=== PATIENT | male | born 1985 | race Hispanic/Latino ===

== ENCOUNTER 2016-04-09 11:13 | Emergency (ER) | payer OTHER ==
[~2016-04-09] VITALS: Ht 180.3 cm; Wt 84.1 kg
[2016-04-09 11:14] VITALS: BP 132/73; PULSE 82; RESP 12; O2SAT 97
--- NOTE | 2016-04-09 11:23 | ED.REPORT ---
HPI-Extremity Problem Lower Date of Service Apr 09, 2016 ED Provider: Xin Pugh History of Present Illness: unloading wood from a truck, knee moved , felt a tear in right knee. Happened atound 7 pm last night. primary care is unknown. happened at home. took ibuprofen and did ice. worse in the morning. 10/10 pain. Did have etoh on board last night per his report Nursing Notes Stated Complaint: RT KNEE INJURY Chief Complaint: Extremity Trauma Nursing Notes Reviewed: Yes Allergies: Coded Allergies: No Known Allergies (Verified , 09/11/14) No Active Prescriptions or Reported Meds General Time Seen by MD: 11:22 Chief Complaint Knee injury right Hx Obtained From: Patient Onset Occurred: Yesterday Severity: Current: Pain level 10 out of 10 Past Medical History Past Medical History Denies: Asthma Past Surgical History 2006 left femur fracture Smoking History Former Smoker Social History Alcohol Use: 1-3 per week Drug Use: THC Occupation lives with girlfriend. work at [employer] 04/09/2016 Ambulatory Status Independent Review of Systems Basic Review of Systems Eyes: Vision NL, No discharge Cardiovascular: No chest pain, No dyspnea on exertion, No orthopnea, No parox noct dyspnea, No palpitations Psychiatric: Normal thought content Physical Exam Initial Vital Signs Vital Signs (First) Date Time Temp Pulse Resp B/P Pulse Ox O2 Delivery O2 Flow Rate FiO2 04/09/16 11:14 37.0 82 12 132/73 97 Room Air Initial VS: Reviewed, Vital signs normal General/Constitutional: Well-developed, Well-nourished Head / Eyes: Atraumatic, Normocephalic, PERRL ENT: Mucous membranes moist, Conjunctiva normal, No scleral icterus Neck: Supple, Non-tender, Full range of motion Respiratory: Breath sounds normal, Clear to auscultation, No respiratory distress Cardiovascular: Regular rate & rhythm, Heart sounds normal, Intact distal pulses Abdomen / GI: Soft, Non-tender, No guarding, No rebound, No distention Back: No CVA tenderness Lymphatic: No lymphadenopathy Upper Extremities: Vascular intact, Neuro intact, No swelling, No tenderness Skin: Warm, Dry, No cyanosis Neurologic: Alert, Oriented, Nonfocal Psychiatric: Mood/affect normal, Behavior normal, Normal thought content Right Knee: Positive: Tenderness present... (Moderate) patient indicates pain is greatest a lateral joint line on right knee. No ecchymosis noted. Cap refill 2 sec on foot, has movement but with discomfort Ankle / Foot: Atraumatic, Inspection NL, Full range of motion General/Constitutional: Awake, Alert, No acute distress, Well appearing, Well developed, Well hydrated Respiratory / Chest: Atraumatic, Breath sounds NL, Breath sounds = bilat, No respiratory distress Cardiovascular: Heart rate NL, Regular rhythm, Heart sounds NL Interpretation & Diagnostics X-Ray Interpretation Xray Interpretation: PROCEDURE: X-RAY RIGHT KNEE, THREE VIEWS ([id number]) INDICATIONS: twisted while unloading wood last night TECHNIQUE: 3 views of the knee were acquired. COMPARISON: None. FINDINGS: Bones: No fractures or dislocations. No suspicious bony lesions. Soft tissues: No joint effusion. No suspicious soft tissue calcifications. IMPRESSION: No abnormality is seen in these 3 views of the right knee. Dictated by: Thomas Mike M.D. on 04/09/2016 at 13:01 Re-Eval/Medical Decision Med Decision/Clinical Course 30 year old male presents to the ER afte injuring right knee while unlaoding wood. He reports his right foot was locked between wood and his upper leg caught a log with lateral movement of his knee. Reports hearing a "tear" Patient indicates greatest pain is along the lateral joint line. No ecchymosis noted. Flexion of the knee results in pain at the lateral joint line. Patient does work at [employer]. No evidence of compartment syndrome, fracture or dislocation Differential Diagnosis: Negative: Compartment syndrome, Fracture, Knee disloc ant Discharge & Departure Impression: Primary Impression: Internal derangement of knee joint Laterality: right Qualified Code: M23.91 - Unspecified internal derangement of right knee Disposition: Home Patient Instructions: Crutch Instructions (ED), Knee Sprain (ED) Additional Instructions: The x-ray does not show any bony damage. Use crutches as needed for ambulation. Use ibuprofen 800 mg 3 times a day for 5 days. Hydrocodone 1 up to 2 times a day as needed for severe unrelenting pain. #20. Continue with elevation and ice , 15 minutes on and 15 minutes off. Need a cloth barrier between your skin and the ice. Note for off work provided for [address] Horne for follow up. Referrals: Rafa Horne MD EDSupervising Provider for APC: Marco Ochoa MD copies to: Rafa Horne MD, Sue ARNP Apr 09, 2016 11:23
[2016-04-09] MEDS ORDERED: Ketorolac 30 mg/mL 2 mL Inj IM ONE (11:35)
--- NOTE | 2016-04-09 13:03 | DRSVH ---
PROCEDURE: X-RAY RIGHT KNEE, THREE VIEWS ([id number]) INDICATIONS: twisted while unloading wood last night TECHNIQUE: 3 views of the knee were acquired. COMPARISON: None. FINDINGS: Bones: No fractures or dislocations. No suspicious bony lesions. Soft tissues: No joint effusion. No suspicious soft tissue calcifications. IMPRESSION: No abnormality is seen in these 3 views of the right knee. Dictated by: Thomas Mike M.D. on 04/09/2016 at 13:01 Approved by: Thomas Mike M.D. on 04/09/2016 at 13:01
== END 2016-04-09 13:15 | disposition home or self-care (01) ==
LOC: SED 11:13
DX: M23.91 Unspecified internal derangement of right knee (principal); W22.8XXA Striking against or struck by other objects, initial encounter; Y92.008 Other place in unspecified non-institutional (private) residence as the place of occurrence of the external cause; Y93.89 Activity, other specified; Y99.8 Other external cause status; I10 Essential (primary) hypertension; F10.10 Alcohol abuse, uncomplicated; Z87.891 Personal history of nicotine dependence; Z87.828 Personal history of other (healed) physical injury and trauma
CPT/HCPCS: 73562; 96372; 99284; J1885

== ENCOUNTER 2016-06-25 16:17 | Emergency (ER) | payer OTHER ==
[~2016-06-25] VITALS: Ht 180.3 cm; Wt 84.1 kg
[2016-06-25 16:27] VITALS: BP 131/74; PULSE 83; RESP 16; O2SAT 97
--- NOTE | 2016-06-25 16:54 | ED.REPORT ---
HPI-Chest Pain Under 40 Date of Service June 25, 2016 ED Provider: Caitlin Tracy MD The patient is a 30 year old male with history of epilepsy not on medication, who presents to the emergency department complaining of central chest pressure that began 1 hour ago while he was at home. The pain radiates to the sides of his chest. He also experienced diaphoresis, a "hot flash," shakiness, and dizziness. The patient states his symptoms are similar to when he has previously had a seizure except he has not previously experienced chest pain. He smoked marijuana prior to his pain but he has smoked this same marijuana several times in the past with no symptoms. 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 He last used 2 hours ago. He denies shortness of breath, nausea, vomiting, fever , chills or cough. Nursing Notes Stated Complaint: TIGHT CHEST, LIGHTHEADED Chief Complaint: Chest Pain Nursing Notes Reviewed: Yes Allergies: Coded Allergies: No Known Allergies (Verified , 09/11/14) No Active Prescriptions or Reported Meds General Time Seen by MD: 16:53 Chief Complaint Chest pain Hx Obtained From: Patient, Spouse Arrived By: Walk-in Sudden in Onset?: Yes Onset Occurred: 1 - 4 hours ago Symptom Duration: Since onset Location: : Substernal Quality: Pressure Severity: Current: Moderate Severity: Maximum: Moderate Recent Healthcare: No recent doctor visit, No recent hospitalization Similar Sx Previous: No Past Medical History Past Medical History Hx of epilepsy, not on medications - last seizure about 4 years ago Past Surgical History 2007 left femur fracture Family History Noncontributory Smoking History Never Smoker Social History The patient has recently been smoking heroin as well Alcohol Use: 1-3 per week Drug Use: THC Other Social History: Good social support, Local resident Occupation lives with girlfriend. work at [employer] 04/09/2016 Ambulatory Status Independent Review of Systems Review of Systems Note: +"hot flash" Constitutional: Denies: Chills, Fever Respiratory: Denies: Non-productive cough, Shortness of breath Cardiovascular: Reports: Chest pain GI: Denies: Nausea, Vomiting Skin: Reports Diaphoresis Neurologic: Reports: Dizziness, Shaking Complete sys rev & neg: except as marked. Physical Exam Initial Vital Signs Vital Signs (First) Date Time Temp Pulse Resp B/P Pulse Ox O2 Delivery O2 Flow Rate FiO2 5/14/17 16:27 36.4 83 16 131/74 97 Room Air Initial VS: Reviewed, Vital signs normal Head / Eyes: Atraumatic, Normocephalic, PERRL ENT: Mucous membranes moist, Conjunctiva normal, No scleral icterus Neck: Supple, Non-tender, Full range of motion Lymphatic: No lymphadenopathy Extremities: Vascular intact, Neuro intact, No swelling, No tenderness Skin: Warm, Dry, No cyanosis Neurologic: Alert, Oriented, Nonfocal Psychiatric: Mood/affect normal, Behavior normal, Normal thought content General/Constitutional: Awake, Alert, Cooperative Respiratory / Chest: Atraumatic, Breath sounds NL, Breath sounds = bilat, No respiratory distress, No rales, No rhonchi, No wheezing, No chest tenderness Cardiovascular: Heart rate NL, Regular rhythm, Heart sounds NL, No gallop, No murmurs, No rubs, Peripheral circulation NL, Pulses = bilaterally, No gross BP differential Abdomen: Soft, No guarding, No rebound, BS normoactive, No distention, No hernia, No palpable mass, No pulsatile mass Tenderness/Guarding/Rebound: Positive: Tender epigastric Interpretation & Diagnostics Lab Results Interpretation Result Diagram: 06/25/16 1640 06/25/16 1640 Test 06/25/16 16:40 06/25/16 18:40 White Blood Count 7.3th/mm3 (3.8-10.1) Red Blood Count 4.67mil/mm3 (4.40-5.80) Hemoglobin 13.9g/dL (13.8-17.2) Hematocrit 42.1% (41.0-50.0) Mean Corpuscular Volume 90.1fL (81-100) Mean Corpuscular Hemoglobin 29.8pg (27.0-35.0) Mean Corpuscular Hemoglobin Concent 33.0% (32.0-37.0) Red Cell Distribution Width 12.6% (12.3-15.4) Platelet Count 296bil/L (150-400) Neutrophils (%) (Auto) 54.6% (40-74) Lymphocytes (%) (Auto) 39.2% (14-46) Monocytes (%) (Auto) 5.4% (4-12) Eosinophils (%) (Auto) 0.3% (0-5) Basophils (%) (Auto) 0.4% (0-3) Sodium Level 140mEq/L (134-144) Potassium Level 3.5mEq/L (3.5-5.2) Chloride Level 100mEq/L (97-108) Carbon Dioxide Level 23mmol/L (18-29) Blood Urea Nitrogen 17mg/dL (6-20) Creatinine 0.93mg/dL (0.76-1.27) Estimat Glomerular Filtration Rate 102mL/min (>59) Glucose Level 168mg/dL (60-99) Calcium Level 9.6mg/dL (8.5-10.1) Total Bilirubin 0.4mg/dL (0.0-1.2) Aspartate Amino Transf (AST/SGOT) 25U/L (0-50) Alanine Aminotransferase (ALT/SGPT) 17U/L (0-44) Alkaline Phosphatase 58U/L (25-150) Total Protein 7.1g/dL (6.4-8.4) Albumin 4.5g/dL (3.4-5.0) Hold Hartley Top Tube Received (Received) Troponin T < 0.010ug/L (0.0-0.011) ECG Interpretation ECG Interpretation: Sinus rhythm with a rate of 85 Normal intervals Normal axis Nonspecific ST changes in all leads Time: 16:39 Interpreted by: ED physician ECG Interpretation: Sinus rhythm with a rate of 60 Time: 18:17 Interpreted by: ED physician X-Ray Chest Interpretation Chest Xray Interpretation: IMPRESSION: 1. No acute cardiopulmonary disease. Dictated by: Hunter Go M.D. on 06/25/2016 at 17:29 Interpretation / Wet Read by: Interpret - Radiologist Re-Eval/Medical Decision Med Decision/Clinical Course According to the patient already since her symptomatically for a seizure in the past however the chest pain is new. A partial list of differential diagnoses considered were acute coronary syndrome, pulmonary embolus, reflux, esophageal spasm, pneumonia, adverse reaction to marijuana, and anxiety. The patient is very low risk for ischemia and he had 2 negative troponins. His symptoms completely resolved while here. The patient also recently started using opiates , he saw our social worker clinical and was given information on getting on Suboxone. Source of Hx: Old records Re-Evaluation/Progress : Time of Eval: 19:32 Re-Evaluation/Progress Note: Rechecked the patient. Discussed plan for discharge. All questions were addressed. Consultation : Consulted With: overhead line worker Call Returned at: 18:05 Note: ED social worker clinical evaluated the patient and gave him outpatient substance abuse resources. He would like us to refer the patient to the residency clinic. Counseled Regarding: Diagnosis, Lab results, Need for follow-up, When/why to return to ED Discharge & Departure Primary Impression: Chest pain Chest pain type: unspecified Qualified Code: R07.9 - Chest pain, unspecified Disposition: Home Discharge Condition All VS Reviewed: Yes Condition: Improved Patient Instructions: Chest Pain (ED) Additional Instructions: Thank you for entrusting us with your care today. Your workup today is reassuring. There is no evidence of a heart attack, blood clot, or pneumonia. It is important that you establish care with a regular doctor. We have given you a referral to the residency clinic and [facility]. Call on Sunday to schedule an appointment. Use the resources that were given to you by the social worker clinical. Please return to the emergency department for any new or concerning symptoms. Referrals: [facility] Attestation Portions of this note were transcribed by Mariely Hernandez. I, Dr. Tracy personally performed the history, physical exam and medical decision-making; I reviewed and confirmed the accuracy of the information in the transcribed note. Signed by: Raina Stephens, 06/25/2016 at 2000. copies to: [facility] Caitlin Tracy MD June 25, 2016 16:54 Mariely Hernandez June 25, 2016 17:03
[2016-06-25 17:09] LABS: BASOPHILS % (AUTO) 0.4 % (0-3); EOSINOPHILS % (AUTO) 0.3 % (0-5); MONOCYTES % (AUTO) 5.4 % (4-12); Mean Corpuscular Hemoglobin 29.8 pg (27.0-35.0); Mean Corpuscular Volume 90.1 fL (81-100); NEUTROPHILS % (AUTO) 54.6 % (40-74); Platelet Count 296 bil/L (150-400)
[2016-06-25] MEDS ORDERED: 0.9% Sodium Chloride 1,000 ML IV ONE (17:15)
[2016-06-25] MEDS ORDERED: LidocaineVisc 2%:Antacid 1:1 10 mL Syringe PO ONE (17:20)
[2016-06-25 17:30] VITALS: BP 127/63; PULSE 78; RESP 18; O2SAT 98
--- NOTE | 2016-06-25 17:37 | DRSVH ---
PROCEDURE: X-RAY CHEST ONE VIEW, PORTABLE ([id number]) INDICATIONS: shortness of breath TECHNIQUE: One view of the chest was acquired. COMPARISON: [facility], , CHEST 2VW, 03/09/2013, 21:32. FINDINGS: Surgical changes and devices: None. Lungs and pleura: No pleural effusions or pneumothorax. Lungs are clear. Mediastinum: Mediastinal contours appear normal. Heart size is normal. Bones and chest wall: No suspicious bony lesions. Overlying soft tissues appear unremarkable. IMPRESSION: 1. No acute cardiopulmonary disease. Dictated by: Hunter Go M.D. on 06/25/2016 at 17:29 Approved by: Hunter Go M.D. on 06/25/2016 at 17:30
[2016-06-25 17:39] LABS: TROPONIN T < 0.010 ug/L (0.0-0.011)
[2016-06-25 19:46] VITALS: BP 111/75; PULSE 65; RESP 20; O2SAT 96
== END 2016-06-25 19:47 | disposition home or self-care (01) ==
LOC: SED 16:17
DX: R07.9 Chest pain, unspecified (principal); R61 Generalized hyperhidrosis; R42 Dizziness and giddiness; F11.20 Opioid dependence, uncomplicated; Z86.69 Personal history of other diseases of the nervous system and sense organs
CPT/HCPCS: 36415; 71010; 80053; 84484; 85025; 93005; 96361; 96374; 99285; J2060; J7030